=== PATIENT | male | born 1960 | race Caucasian/White ===

== ENCOUNTER 2017-03-03 08:26 | Outpatient (CLI) | payer OTHER, BC ==
[~2017-03-03] VITALS: Ht 170.2 cm; Wt 99.8 kg
[~2017-03-03 08:26] MED LIST: BUPR300T34 PO; LISI-542 PO; PRAV40TA2 PO
[2017-03-03] MEDS ORDERED: NS 1,000 ML IV ONE (08:45)
[2017-03-03] MEDS ORDERED: PROPOFOL 200 MG/20 ML VIAL As Ordered ONE ×2 (09:34→09:49)
--- NOTE | 2017-03-03 10:07 | ROOR ---
Patient Name: Harry Jolley Procedure Date: 03/03/2017 9:32 AM Date of : 1960 Age: 56 Room: [facility] Gender: Male Note Status: Finalized Procedure: Total Colonoscopy to Cecum + Cold Snare Polypectomy + Hemoclip Indications: High risk colon cancer surveillance: Personal history of colonic polyps, Last colonoscopy: 2013 Providers: Williams Keyes MD Referring MD: Bibi Martinez NP Requesting Provider: Medicines: Monitored Anesthesia Care Complications: No immediate complications. Procedure: Pre-Anesthesia Assessment: - The heart rate, respiratory rate, oxygen saturations, blood pressure, adequacy of pulmonary ventilation, and response to care were monitored throughout the procedure. The Colonoscope was introduced through the anus and advanced to the cecum, identified by appendiceal orifice and ileocecal valve. The colonoscopy was performed without difficulty. The patient tolerated the procedure well. The quality of the bowel preparation was excellent. Findings: The perianal and digital rectal examinations were normal. Non-bleeding internal hemorrhoids were found during retroflexion. The hemorrhoids were small and Grade I (internal hemorrhoids that do not prolapse). Scattered small-mouthed diverticula were found in the recto-sigmoid colon, sigmoid colon and descending colon. A small polyp was found at 40 cm proximal to the anus. The polyp was sessile. The polyp was removed with a cold snare. Resection and retrieval were complete. To prevent bleeding after the polypectomy, one hemostatic clip was successfully placed (MR conditional). There was no bleeding at the end of the procedure. Multiple sessile polyps were found at 20 cm proximal to the anus. The polyps were small in size. These polyps were removed with a cold snare. Resection and retrieval were complete. A small polyp was found in the rectum. The polyp was sessile. The polyp was removed with a jumbo cold forceps. Resection and retrieval were complete. To prevent bleeding after the polypectomy, one hemostatic clip was successfully placed (MR conditional). There was no bleeding at the end of the procedure. The exam was otherwise without abnormality on direct and retroflexion views. Impression: - Non-bleeding internal hemorrhoids. - Diverticulosis in the recto-sigmoid colon, in the sigmoid colon and in the descending colon. - One small polyp at 40 cm proximal to the anus, removed with a cold snare. Resected and retrieved. Clip (MR conditional) was placed. - Multiple small polyps at 20 cm proximal to the anus, removed with a cold snare. Resected and retrieved. - One small polyp in the rectum, removed with a jumbo cold forceps. Resected and retrieved. Clip (MR conditional) was placed. - The examination was otherwise normal on direct and retroflexion views. - The exam was otherwise normal to the cecum. Recommendation: - Patient has a contact number available for emergencies. The signs and symptoms of potential delayed complications were discussed with the patient. Return to normal activities tomorrow. Written discharge instructions were provided to the patient. - Discharge patient to home. - Continue present medications. - Await pathology results. - Telephone GI clinic for pathology results in 1 week. - Return to referring physician. - Repeat colonoscopy for surveillance based on pathology results. - The findings and recommendations were discussed with the patient's family. Williams Keyes MD Williams Keyes MD 03/03/2017 10:07:00 AM This report has been signed electronically. Number of Addenda: 0 Note Initiated On: 03/03/2017 9:32 AM Estimated Blood Loss: Estimated blood loss: none.
[2017-03-03 10:20] VITALS: BP 119/58
== END 2017-03-03 10:30 | disposition home or self-care (01) ==
LOC: M OPP 08:26
PROVIDERS: ATTEND Internal Medicine Gastroenterology
DX: Z12.11 Encounter for screening for malignant neoplasm of colon (principal); Z86.010 Personal history of colon polyps; Z80.0 Family history of malignant neoplasm of digestive organs; K64.0 First degree hemorrhoids; D12.6 Benign neoplasm of colon, unspecified; K62.1 Rectal polyp; K57.30 Diverticulosis of large intestine without perforation or abscess without bleeding; K62.5 Hemorrhage of anus and rectum; I10 Essential (primary) hypertension; J45.909 Unspecified asthma, uncomplicated; E78.5 Hyperlipidemia, unspecified; K22.8 Other specified diseases of esophagus; H93.13 Tinnitus, bilateral; R06.83 Snoring; Z87.891 Personal history of nicotine dependence; Z79.899 Other long term (current) drug therapy

== ENCOUNTER → 2017-07-25 | Outpatient (REF) | payer OTHER, BC | LOC: M LAB REF 16:39 | DX: J06.9 Acute upper respiratory infection, unspecified (principal) ==